=== PATIENT | male | born 1980 | race Caucasian/White ===

== ENCOUNTER 2017-12-28 01:20 | Emergency (ER) | payer SELFPAY ==
[~2017-12-28] VITALS: Ht 167.6 cm; Wt 100.9 kg
[2017-12-28 01:32] VITALS: Ht 167.6 cm; Wt 100.9 kg
[2017-12-28 02:15] VITALS: BP 123/75
== END 2017-12-28 02:15 | disposition home or self-care (01) ==
LOC: ED 01:20
DX: T23.002A Burn of unspecified degree of left hand, unspecified site, initial encounter (principal); X58.XXXA Exposure to other specified factors, initial encounter; Y93.89 Activity, other specified; Y92.89 Other specified places as the place of occurrence of the external cause; Y99.8 Other external cause status
CPT/HCPCS: 90715

== ENCOUNTER 2018-10-12 09:27 | Emergency (ER) | payer OTHER ==
[~2018-10-12] VITALS: Ht 167.6 cm; Wt 100.2 kg
[2018-10-12 09:33] VITALS: BP 127/80; Ht 167.6 cm; Wt 100.2 kg
== END 2018-10-12 10:31 | disposition home or self-care (01) ==
LOC: ED 09:27
DX: M25.561 Pain in right knee (principal); E11.9 Type 2 diabetes mellitus without complications